=== PATIENT | male | born 1935 | race Caucasian/White ===

== ENCOUNTER 2022-03-02 13:05 | Emergency (ER) | payer MEDICARE, OTHER ==
[~2022-03-02] VITALS: Ht 185.5 cm; Wt 91.2 kg
[2022-03-02 13:33] LABS: BASOPHILS % (AUTO) 0 % (0-10); EOSINOPHILS % (AUTO) 0 % (0-10); HEMATOCRIT 29 % (40-54); HEMOGLOBIN 9.3 g/dL (13.3-17.7); LYMPHOCYTES # (AUTO) 0.5 10^3/uL (1.0-4.0); LYMPHOCYTES % (AUTO) 5 % (12-44); MEAN CORPUSCULAR HEMOGLOBIN 25 pg (25-34); MEAN CORPUSCULAR HGB CONC 33 g/dL (32-36); MEAN CORPUSCULAR VOLUME 78 fL (80-99); MEAN PLATELET VOLUME 9.4 fL (9.0-12.2); MONOCYTES # (AUTO) 1.1 10^3/uL (0.0-1.0); MONOCYTES % (AUTO) 12 % (0-12); NEUTROPHILS # (AUTO) 8.2 10^3/uL (1.8-7.8); NEUTROPHILS % (AUTO) 83 % (42-75); PLATELET COUNT 234 10^3/uL (130-400); WHITE BLOOD COUNT 9.9 10^3/uL (4.3-11.0)
[2022-03-02 13:50] LABS: BILIRUBIN,TOTAL 1.7 MG/DL (0.1-1.0); CALCIUM 9.1 MG/DL (8.5-10.1); CREATININE SERUM 1.18 MG/DL (0.60-1.30); POTASSIUM 4.5 MMOL/L (3.6-5.0)
[2022-03-02 13:51] LABS: ALBUMIN 3.6 GM/DL (3.2-4.5)
--- NOTE | 2022-03-02 13:59 | Diagnostic Imaging Report ---
PROCEDURE: CT head without contrast. TECHNIQUE: Multiple contiguous axial images were obtained through the brain without the use of intravenous contrast. Auto Exposure Controls were utilized during the CT exam to meet ALARA standards for radiation dose reduction. INDICATION: Altered mental status The ventricles are normal in size, shape and position. There are no masses or hemorrhages. There are no extra-axial fluid collections. There is some decreased density in the periventricular white matter. 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 No acute abnormality seen. Dictated by: Dictated on workstation # [id number]
[2022-03-02 14:05] LABS: ANISOCYTOSIS SLIGHT; BAND NEUTROPHILS 1 %; BASOPHILS % (MANUAL) 0 %; EOSINOPHILS % (MANUAL) 0 %; HYPOCHROMASIA MODERATE; LYMPHOCYTES % (MANUAL) 5 %; MONOCYTES % (MANUAL) 6 %; NEUTROPHILS % (MANUAL) 88 %; POIKILOCYTOSIS SLIGHT
--- NOTE | 2022-03-02 14:05 | ED General ---
General Chief Complaint: Respiratory Problems Stated Complaint: SOB Nursing Triage Note: PT TO ROOM FS05 VIA [facility] WITH CO SHERIFF JONES WITH C/O SOB. EMS REPORTS PT HAD STATED HE WAS SOB. [employer] IN[employer]RA[employer] ARCHITECT STATES THAT PT WAS CONFUSED ON SCENE AND WAS UNABLE TO ANSWER MOST QUESTIONS. PT WAS SUBJECT OF A SILVER ALERT AND HAS BEEN MISSING X3 DAYS. HAD[employer] INFRA[employer] ARCHITECT STATES PT WAS SITTING IN HIS TRUCK ON THE SIDE OF THE HIWAY WHEN FIRST INTERACTED WITH PT. PT'S SON IN [place] FROM [place]. Source of Information: Patient, EMS Exam Limitations: No Limitations History of Present Illness Date Seen by Provider: Mar 02, 2022 Time Seen by Provider: 13:15 Initial Comments Patient is an 86-year-old male found confused sitting in his truck on the side of the road. He has history of dementia and was found missing 3 days ago. Patient is alert but nonverbal. He moves all 4 extremities does not appear to be in pain or distress. History is limited by the patient's clinical condition. Timing/Duration: Other Modifying Factors: improves with Other Associated Systoms: Other Allergies and Home Medications Allergies Coded Allergies: No Known Drug Allergies (Unverified , 03/02/22) Patient Home Medication List Home Medication List Reviewed: Yes Review of Systems Review of Systems Constitutional: see HPI EENTM: see HPI Respiratory: see HPI Cardiovascular: see HPI Gastrointestinal: see HPI Skin: see HPI Psychiatric/Neurological: See HPI Hematologic/Lymphatic: See HPI Immunological/Allergic: see HPI All Other Systems Reviewed Negative Unless Noted: No Past [id number]-Vihdtm Hx Patient Social History Tobacco Use?: No Smoking Status: Never a Smoker Smokeless Tobacco Frequency: Never a User Use of E-Cig and/or Vaping dev: No Use of E-Cig and/or Vaping Charli: Never a User Substance use?: No Alcohol Use?: No Pt feels they are or have been: No Physical Exam Vital Signs Vital Signs - First Documented Capillary Refill : Less Than 3 Seconds Height, Weight, BMI Height: '" Weight: lbs. oz. kg; 26.00 BMI Method: General Appearance: No Apparent Distress, WD/WN Eyes: Bilateral Eye Normal Inspection, Bilateral Eye PERRL, Bilateral Eye EOMI HEENT: PERRL/EOMI, TMs Normal, Pharynx Normal Neck: Normal Inspection, Non Tender, Supple Respiratory: Lungs Clear Cardiovascular: No Edema Gastrointestinal: Non Tender, Soft Back: No CVA Tenderness Neurologic/Psychiatric: Alert, No Motor/Sensory Deficits Skin: Normal Color, Cool Focused Exam Sepsis Stage: Ruled Out Progress/Results/Core Measures Suspected Sepsis SIRS Temperature: Pulse: 72 Respiratory Rate: 17 Laboratory Tests 03/02/22 13:13: White Blood Count 9.9 Blood Pressure 137 /60 Mean: 85 Laboratory Tests 03/02/22 13:13: Creatinine 1.18, Platelet Count 234, Total Bilirubin 1.7H Results/Orders Lab Results Laboratory Tests Test 03/02/22 13:13 Range/Units White Blood Count 9.9 4.3-11.0 10^3/uL Red Blood Count 3.67 L 4.30-5.52 10^6/uL Hemoglobin 9.3 L 13.3-17.7 g/dL Hematocrit 29 L 40-54 % Mean Corpuscular Volume 78 L 80-99 fL Mean Corpuscular Hemoglobin 25 25-34 pg Mean Corpuscular Hemoglobin Concent 33 32-36 g/dL Red Cell Distribution Width 14.5 10.0-14.5 % Platelet Count 234 130-400 10^3/uL Mean Platelet Volume 9.4 9.0-12.2 fL Immature Granulocyte % (Auto) 0 % Neutrophils (%) (Auto) 83 H 42-75 % Lymphocytes (%) (Auto) 5 L 12-44 % Monocytes (%) (Auto) 12 0-12 % Eosinophils (%) (Auto) 0 0-10 % Basophils (%) (Auto) 0 0-10 % Neutrophils # (Auto) 8.2 H 1.8-7.8 10^3/uL Lymphocytes # (Auto) 0.5 L 1.0-4.0 10^3/uL Monocytes # (Auto) 1.1 H 0.0-1.0 10^3/uL Eosinophils # (Auto) 0.0 0.0-0.3 10^3/uL Basophils # (Auto) 0.0 0.0-0.1 10^3/uL Immature Granulocyte # (Auto) 0.0 0.0-0.1 10^3/uL Neutrophils % (Manual) 88 % Lymphocytes % (Manual) 5 % Monocytes % (Manual) 6 % Eosinophils % (Manual) 0 % Basophils % (Manual) 0 % Band Neutrophils 1 % Hypochromasia MODERATE Poikilocytosis SLIGHT Anisocytosis SLIGHT Sodium Level 141 135-145 MMOL/L Potassium Level 4.5 3.6-5.0 MMOL/L Chloride Level 106 98-107 MMOL/L Carbon Dioxide Level 21 21-32 MMOL/L Anion Gap 14 5-14 MMOL/L Blood Urea Nitrogen 20 H 7-18 MG/DL Creatinine 1.18 0.60-1.30 MG/DL Estimat Glomerular Filtration Rate 59 BUN/Creatinine Ratio 17 Glucose Level 126 H 70-105 MG/DL Calcium Level 9.1 8.5-10.1 MG/DL Corrected Calcium 9.4 8.5-10.1 MG/DL Total Bilirubin 1.7 H 0.1-1.0 MG/DL Aspartate Amino Transf (AST/SGOT) 35 H 5-34 U/L Alanine Aminotransferase (ALT/SGPT) 18 0-55 U/L Alkaline Phosphatase 38 L 40-136 U/L Total Protein 7.0 6.4-8.2 GM/DL Albumin 3.6 3.2-4.5 GM/DL My Orders Orders - MARITA GROVES DO Ct Head Wo (03/02/22 13:25) Cbc With Automated Diff (03/02/22 13:25) Comprehensive Metabolic Panel (03/02/22 13:25) Urinalysis (03/02/22 13:25) Thyroid Stimulating Hormone (03/02/22 13:25) Ekg Tracing (03/02/22 13:25) Manual Differential (03/02/22 13:13) Vital Signs/I&O 03/02/22 03/02/22 13:05 13:05 Temp 36.2 Pulse 72 Resp 17 B/P (MAP) 137/60 (85) O2 Delivery Room Air Room Air Capillary Refill : Less Than 3 Seconds Blood Pressure Mean: 85 Departure Communication (Admissions) EKG: Paced rhythm Patient more alert and conversive in the emergency department. He is without hearing aids. Family member states that he has been having lucid dreams and hallucinating during the day.. Initial ER work-up reviewed. Patient accepted to [facility] by Dr. Rodriguez Impression Primary Impression: Altered mental state Disposition: XFER SHT-TRM HOSP Condition: Stable Transfer Transfer Progress Notes Patient accepted per Dr. Rodriguez Transfer Time: 17:05 Method of Transfer: Private Vehicle GROVES,MARITA OJEDA Mar 02, 2022 14:05
[2022-03-02 18:32] VITALS: BP 143/84
== END 2022-03-02 18:36 | disposition short-term general hospital (02) ==
LOC: ER FS 13:06
DX: R41.82 Altered mental status, unspecified (principal); R44.3 Hallucinations, unspecified
CPT/HCPCS: 36415; 70450; 80053; 84443; 85007; 85027; 93005; 99283; G0480; 80320